=== PATIENT | male | born 1960 | race Caucasian/White ===

== ENCOUNTER 2017-02-26 05:55 | Observation (INO) | payer BC ==
[~2017-02-26] VITALS: Ht 171.4 cm; Wt 87.5 kg
[~2017-02-26 05:55] MED LIST: ASPIRIN81 M1 PO; Ativan PO; Ecotrin PO; LIPITOR5 MG PO; LOPRESSOR25 MG PO; Lipitor PO; METOPROLOL TART25 MG PO; PriLOSEC PO; SKELAXIN400 MG PO; ULTRAM50 MG PO; ZITHROMAX500 MG PO
[2017-02-26 06:46] LABS: BASOPHIL COUNT 0.1 K/uL (0-0.1); EOSINOPHIL (%) 2.5 % (0-5); EOSINOPHIL COUNT 0.2 K/uL (0-0.3); HEMATOCRIT 47.4 % (38.0-50.0); IMMATURE GRANULOCYTE (%) 0.5 % (0.0-0.7); IMMATURE GRANULOCYTE COUNT 0.1 K/uL; INSTRUMENT ABS NEUTROPHIL CT 6.6 K/uL; LYMPHOCYTE COUNT 1.8 K/uL (1.0-2.8); MCH 30.2 PG (29.0-34.0); MCHC 34.8 G/DL (30.0-36.0); MCV 86.7 FL (86-99); MEAN PLAT.VOLUME 9.1 uM^3 (9.0-12.4); MONOCYTE (%) 9.3 % (3-12); MONOCYTE COUNT 0.9 K/uL (0-0.8); NEUTROPHIL (%) 68.1 % (45-76); NEUTROPHIL COUNT 6.6 K/uL (1.8-6.4); PLATELET COUNT 255 K/uL (156-360); RBC DIS.WIDTH-CV 13.2 % (11.8-14.6); RBC DIS.WIDTH-SD 42.1 % (39-53); RED BLOOD COUNT 5.47 M/uL (4.00-5.50); WHITE BLOOD COUNT 9.7 K/uL (4.1-10.2)
[2017-02-26 06:53] LABS: INTER. NORMALIZED RATIO 0.9; PROTHROMBIN TIME 10.2 SEC (10.2-12.9)
[2017-02-26 06:56] LABS: PTT 28.5 SEC (25-37)
[2017-02-26 08:37] LABS: D-DIMER ELISA < 150.00 ng/mLDDU (<230)
[2017-02-26 09:03] LABS: TROP-I INTERPRETATION NEGATIVE; TROPONIN-I 0.03 ng/mL (0.0-0.30)
[2017-02-26 09:04] LABS: ANION GAP 11 MEQ/L (2-14); CHLORIDE 102 MEQ/L (99-109); GFR ESTIMATE (CALCULATED) > 59 mL/min/; GLUCOSE 127 mg/dL (70-99); POTASSIUM 4.1 MEQ/L (3.7-5.4); SAMPLE HEMOLYSIS CHECK 0; SAMPLE ICTERIC CHECK 0; SAMPLE LIPEMIA CHECK 0; SODIUM 138 MEQ/L (136-147); UREA NITROGEN (BUN) 14 mg/dL (9-23)
[2017-02-26] MEDS ORDERED: LITE COAT ASPI325 M1 PO (09:56)
[2017-02-26] MEDS ORDERED: LIPITOR80 MG PO (09:57)
[2017-02-26] MEDS ORDERED: ATIVAN0.5 MG PO (09:57)
[2017-02-26] MEDS ORDERED: PRILOSEC20 MG PO (09:58)
[2017-02-26] MEDS ORDERED: FARXIGA10 MG PO (09:58)
[2017-02-26] MEDS ORDERED: NORVASC10 MG PO (09:58)
[2017-02-26] MEDS ORDERED: TRIAMCINOLONE A15 GM TP (09:59)
[2017-02-26] MEDS ORDERED: MUPIROCIN15 GM TP (09:59)
[2017-02-26 10:21] VITALS: BP 160/94
[2017-02-26 12:34] LABS: POINT-OF-CARE METER ID UU13113700
[2017-02-26 12:53] LABS: ALKALINE PHOSPHATASE 81 IU/L (3-129); DIRECT BILIRUBIN 0.1 mg/dL (0.0-0.3); HDL CHOLESTEROL 84 MG/DL (Desirable>=40); LDL CHOLESTEROL 189 mg/dL (Desirable<100); LIPASE 43 U/L (1.0-51.0); NON-HDL CHOLESTEROL 232 mg/dL (Desirable<160); TOTAL BILIRUBIN 0.5 MG/DL (0.0-1.0); TOTAL CHOLESTEROL 316 mg/dL (Desirable<200); TRIGLYCERIDES 214 MG/DL (Normal: <150)
[2017-02-26 13:27] LABS: TROP-I INTERPRETATION NEGATIVE; TROPONIN-I < 0.01 ng/mL (0.0-0.30)
[2017-02-26 16:28] VITALS: BP 140/82
[2017-02-26 17:00] LABS: POINT-OF-CARE METER ID UU13113700
[2017-02-26 18:02] LABS: TROP-I INTERPRETATION NEGATIVE; TROPONIN-I 0.01 ng/mL (0.0-0.30)
[2017-02-26 20:00] VITALS: BP 136/86
[2017-02-26 21:22] LABS: POINT-OF-CARE METER ID UU13113831
[2017-02-27] VITALS: BP 117/75
[2017-02-27 04:00] VITALS: BP 121/60
[2017-02-27 08:00] VITALS: BP 143/90
[2017-02-27 09:22] LABS: POINT-OF-CARE METER ID UU13113700
[2017-02-27 12:48] LABS: POINT-OF-CARE METER ID UU13113700
[2017-02-27 13:11] VITALS: BP 149/93
== END 2017-02-27 16:25 | disposition home or self-care (01) ==
LOC: EME 05:55 → EDOF 07:52 → 5WEST 07:52 → EDOF 07:52 → ENRESERV 08:03 → 5WEST 09:59
PROVIDERS: Emergency Medicine; Internal Medicine
DX: R07.9 Chest pain, unspecified (principal); J21.9 Acute bronchiolitis, unspecified; J45.909 Unspecified asthma, uncomplicated; E11.9 Type 2 diabetes mellitus without complications; I10 Essential (primary) hypertension; I25.10 Atherosclerotic heart disease of native coronary artery without angina pectoris; Z95.5 Presence of coronary angioplasty implant and graft; I51.7 Cardiomegaly; E78.5 Hyperlipidemia, unspecified; Z87.891 Personal history of nicotine dependence; K21.9 Gastro-esophageal reflux disease without esophagitis; I70.0 Atherosclerosis of aorta; Z79.82 Long term (current) use of aspirin; Z88.1 Allergy status to other antibiotic agents
CPT/HCPCS: 71010; 71275; 80048; 80061; 80076; 82948; 83690; 84484; 85025; 85379; 85610; 85730; 93005; 99281; 99284; G0378; J1650; J2270

== ENCOUNTER 2017-03-14 08:43 | Day surgery (SDC) | payer BC ==
[~2017-03-14] VITALS: Ht 171.4 cm; Wt 83.0 kg
[~2017-03-14 08:43] MED LIST changes: +ATIVAN0.5 MG PO; +FARXIGA10 MG PO; +LIPITOR80 MG PO; +LISINOPRIL20 MG PO; +LITE COAT ASPI325 M1 PO; +MUPIROCIN15 GM TP; +NORVASC10 MG PO; +PRILOSEC20 MG PO; +TRIAMCINOLONE A15 GM TP
[2017-03-14 09:42] LABS: POINT-OF-CARE METER ID UU13113696
[2017-03-14 11:49] LABS: POINT-OF-CARE METER ID UU13113819; POINT-OF-CARE USER ID 515036437
== END 2017-03-14 16:10 | disposition home or self-care (01) ==
LOC: CATH 08:43
PROVIDERS: Internal Medicine Cardiovascular Disease
DX: I25.10 Atherosclerotic heart disease of native coronary artery without angina pectoris (principal); E11.9 Type 2 diabetes mellitus without complications; F41.8 Other specified anxiety disorders; E78.5 Hyperlipidemia, unspecified; I10 Essential (primary) hypertension; J45.909 Unspecified asthma, uncomplicated; K86.1 Other chronic pancreatitis; K21.9 Gastro-esophageal reflux disease without esophagitis; Z95.5 Presence of coronary angioplasty implant and graft; Z79.82 Long term (current) use of aspirin
CPT/HCPCS: 82948; C1750; C1760; C1769; C1887; C1894; J1200; J1644; J2250; J3010

== ENCOUNTER 2017-06-05 03:41 | Inpatient (IN) | payer BC ==
[~2017-06-05] VITALS: Ht 175.3 cm; Wt 83.3 kg
[2017-06-05 04:25] LABS: HEMATOCRIT 47.8 % (38.0-50.0); HEMOGLOBIN 17.3 G/DL (12.5-16.6); MCHC 36.2 G/DL (30.0-36.0); MCV 91.2 FL (86-99); PLATELET COUNT 249 K/uL (156-360); RBC DIS.WIDTH-CV 12.4 % (11.8-14.6); RBC DIS.WIDTH-SD 41.9 % (39-53); RED BLOOD COUNT 5.24 M/uL (4.00-5.50); WHITE BLOOD COUNT 8.1 K/uL (4.1-10.2)
[2017-06-05 04:34] LABS: ALBUMIN 3.7 g/dL (3.2-4.8); CHLORIDE 94 mEq/L (99-109); POTASSIUM 4.1 mEq/L (3.7-5.4); SODIUM 131 mEq/L (136-147)
[2017-06-05 04:36] LABS: GLUCOSE 176 mg/dL (70-99); TOTAL PROTEIN 6.3 g/dL (6.4-8.3)
[2017-06-05 04:38] LABS: TOTAL BILIRUBIN 0.7 mg/dL (0.0-1.0)
[2017-06-05 04:40] LABS: ALKALINE PHOSPHATASE 96 IU/L (3-129); GFR ESTIMATE (CALCULATED) > 59 mL/min/ (58.99-99999)
[2017-06-05 04:41] LABS: UREA NITROGEN (BUN) 20 mg/dL (9-23)
[2017-06-05 04:42] LABS: AST (GOT) 26 IU/L (2-34)
[2017-06-05 04:43] LABS: ALT (GPT) 35 IU/L (3-49); LIPASE 37 U/L (1.0-51.0)
[2017-06-05 06:29] LABS: APPEARANCE CLEAR ((CLEAR)); BILIRUBIN NEGATIVE; BLOOD NEGATIVE; COLOR YELLOW ((YELLOW)); GLUCOSE (STRIP) >=500; KETONES NEGATIVE; LEUKOCYTES NEGATIVE; NITRITE NEGATIVE; PROTEIN (STRIP) NEGATIVE; UCUL ADDED? NO; UROBILINOGEN 0.2 MG/DL (0.2-1.0)
[2017-06-05 07:39] LABS: SPECIFIC GRAVITY 1.092 (1.000-1.030)
[2017-06-05] MEDS ORDERED: SERTRALINE HCL25 MG PO (09:57)
[2017-06-05] MEDS ORDERED: WELCHOL625 MG PO (09:58)
[2017-06-05] MEDS ORDERED: ONDANSETRON HCL4 MG PO (09:58)
[2017-06-05 15:05] VITALS: BP 148/78
[2017-06-05 23:55] VITALS: BP 135/73
[2017-06-06 04:35] VITALS: BP 136/72
[2017-06-06 07:16] LABS: CHLORIDE 100 MEQ/L (99-109); CREATININE 0.9 MG/DL (0.6-1.3); GFR ESTIMATE (CALCULATED) > 59 mL/min/ (58.99-99999); POTASSIUM 4.3 MEQ/L (3.7-5.4); SODIUM 136 MEQ/L (136-147); UREA NITROGEN (BUN) 12 mg/dL (9-23)
[2017-06-06 07:20] LABS: GLUCOSE 85 mg/dL (70-99); HEMATOCRIT 41.7 % (38.0-50.0); MCH 32.7 PG (29.0-34.0); MCHC 34.8 G/DL (30.0-36.0); MCV 94.1 FL (86-99); PLATELET COUNT 189 K/uL (156-360); RBC DIS.WIDTH-CV 12.3 % (11.8-14.6); RED BLOOD COUNT 4.43 M/uL (4.00-5.50); WHITE BLOOD COUNT 6.5 K/uL (4.1-10.2)
[2017-06-06 07:21] LABS: HEMOGLOBIN 14.5 G/DL (12.5-16.6)
[2017-06-06 07:26] VITALS: BP 154/87
[2017-06-06 10:57] VITALS: BP 129/88
[2017-06-06 16:14] VITALS: BP 133/80
[2017-06-06 20:35] VITALS: BP 132/78
[2017-06-06 20:38] VITALS: BP 138/85
[2017-06-07 00:11] VITALS: BP 133/63
[2017-06-07 07:48] VITALS: BP 131/83
[2017-06-07 16:16] VITALS: BP 159/89
[2017-06-08] VITALS: BP 127/81
[2017-06-08 06:16] LABS: HEMATOCRIT 39.6 % (38.0-50.0); HEMOGLOBIN 14.2 G/DL (12.5-16.6); MCH 33.7 PG (29.0-34.0); MCHC 35.9 G/DL (30.0-36.0); MCV 94.1 FL (86-99); PLATELET COUNT 152 K/uL (156-360); RBC DIS.WIDTH-CV 11.9 % (11.8-14.6); RBC DIS.WIDTH-SD 41.3 % (39-53); RED BLOOD COUNT 4.21 M/uL (4.00-5.50); WHITE BLOOD COUNT 5.8 K/uL (4.1-10.2)
[2017-06-08 07:01] LABS: CHLORIDE 103 MEQ/L (99-109); GFR ESTIMATE (CALCULATED) > 59 mL/min/ (58.99-99999); GLUCOSE 101 mg/dL (70-99); POTASSIUM 4.5 MEQ/L (3.7-5.4); SODIUM 138 MEQ/L (136-147); UREA NITROGEN (BUN) 8 mg/dL (9-23)
[2017-06-08 07:41] VITALS: BP 167/83
[2017-06-08 16:44] VITALS: BP 150/87
[2017-06-08 23:15] VITALS: BP 141/70
[2017-06-09 07:36] VITALS: BP 168/83
[2017-06-09 09:22] LABS: HEMATOCRIT 44.2 % (38.0-50.0); HEMOGLOBIN 14.9 G/DL (12.5-16.6); MCH 31.4 PG (29.0-34.0); MCHC 33.7 G/DL (30.0-36.0); MCV 93.2 FL (86-99); PLATELET COUNT 179 K/uL (156-360); RBC DIS.WIDTH-CV 11.9 % (11.8-14.6); RBC DIS.WIDTH-SD 41.1 % (39-53); RED BLOOD COUNT 4.74 M/uL (4.00-5.50); WHITE BLOOD COUNT 6.3 K/uL (4.1-10.2)
[2017-06-09 09:47] LABS: ALBUMIN 3.2 G/DL (3.2-4.8); ALKALINE PHOSPHATASE 70 IU/L (3-129); ALT (GPT) 17 IU/L (3-49); AST (GOT) 16 IU/L (2-34); CHLORIDE 104 MEQ/L (99-109); CREATININE 0.9 MG/DL (0.6-1.3); GFR ESTIMATE (CALCULATED) > 59 mL/min/ (58.99-99999); LIPASE 27 U/L (1.0-51.0); POTASSIUM 4.4 MEQ/L (3.7-5.4); SODIUM 137 MEQ/L (136-147); TOTAL BILIRUBIN 0.4 MG/DL (0.0-1.0); UREA NITROGEN (BUN) 6 mg/dL (9-23)
[2017-06-09 09:48] LABS: GLUCOSE 215 mg/dL (70-99)
[2017-06-09] MEDS ORDERED: GABAPENTIN300 MG PO (11:40)
[2017-06-09] MEDS ORDERED: CREON 241 CAPSULE PO (11:40)
[2017-06-09] MEDS ORDERED: ENDOCET 5-3251 EACH PO (11:40)
== END 2017-06-09 13:00 | disposition home or self-care (01) | DRG 439 ==
LOC: EME 03:41 → 5EAST 09:11 → EDOF 09:11 → ENRESERV 09:16 → 5EAST 13:05 → ENPENDDIS 06-09 → 5EAST 06-09 13:00
PROVIDERS: Internal Medicine; Internal Medicine Gastroenterology
DX: K85.90 Acute pancreatitis without necrosis or infection, unspecified (principal); K76.0 Fatty (change of) liver, not elsewhere classified; I25.10 Atherosclerotic heart disease of native coronary artery without angina pectoris; E11.40 Type 2 diabetes mellitus with diabetic neuropathy, unspecified; I10 Essential (primary) hypertension; J45.909 Unspecified asthma, uncomplicated; K57.90 Diverticulosis of intestine, part unspecified, without perforation or abscess without bleeding; E87.1 Hypo-osmolality and hyponatremia; Q45.3 Other congenital malformations of pancreas and pancreatic duct; Z95.5 Presence of coronary angioplasty implant and graft; Z79.4 Long term (current) use of insulin; Z87.891 Personal history of nicotine dependence; Z90.49 Acquired absence of other specified parts of digestive tract
CPT/HCPCS: 71045; 74177; 80048; 80053; 81003; 82948; 83690; 85027; 94640; 99281; 99285; J1170; J1650; J1815; J2270; J2405; J2765; J3010; J7030; S0028

== ENCOUNTER 2017-12-07 18:48 | Emergency (ER) | payer BC ==
[~2017-12-07] VITALS: Ht 175.3 cm; Wt 93.0 kg
[~2017-12-07 18:48] MED LIST changes: +CREON 241 CAPSULE PO; +ENDOCET 5-3251 EACH PO; +GABAPENTIN300 MG PO; +ONDANSETRON HCL4 MG PO; +SERTRALINE HCL25 MG PO; +WELCHOL625 MG PO
[2017-12-07 19:40] LABS: HEMATOCRIT 42.4 % (38.0-50.0); HEMOGLOBIN 15.4 G/DL (12.5-16.6); MCH 30.7 PG (29.0-34.0); MCHC 36.3 G/DL (30.0-36.0); MCV 84.6 FL (86-99); RBC DIS.WIDTH-CV 12.4 % (11.8-14.6); RBC DIS.WIDTH-SD 37.2 % (39-53); RED BLOOD COUNT 5.01 M/uL (4.00-5.50); WHITE BLOOD COUNT 9.6 K/uL (4.1-10.2)
[2017-12-07 20:01] LABS: CARBON DIOXIDE (BICARBONATE) 23.5 MEQ/L (20-31)
[2017-12-07 20:04] LABS: PLATELET COUNT 221 K/uL (156-360)
[2017-12-07 20:22] LABS: TROP-I INTERPRETATION NEGATIVE; TROPONIN-I < 0.01 ng/mL (0.0-0.30)
[2017-12-07 20:43] LABS: ALBUMIN 3.6 g/dL (3.2-4.8); CHLORIDE 101 mEq/L (99-109); POTASSIUM 4.9 mEq/L (3.7-5.4); SODIUM 133 mEq/L (136-147)
[2017-12-07 20:44] LABS: MAGNESIUM 2.2 mg/dL (1.3-2.7)
[2017-12-07 20:46] LABS: TOTAL PROTEIN 6.4 g/dL (6.4-8.3)
[2017-12-07 20:48] LABS: TOTAL BILIRUBIN 0.2 mg/dL (0.0-1.0)
[2017-12-07 20:49] LABS: ALKALINE PHOSPHATASE 110 IU/L (3-129); PHOSPHORUS 2.4 mg/dL (2.5-4.9)
[2017-12-07 20:50] LABS: CREATININE 1.3 mg/dL (0.6-1.3); GFR ESTIMATE (CALCULATED) > 59 mL/min/ (58.99-99999)
[2017-12-07 20:51] LABS: AST (GOT) 16 IU/L (2-34); UREA NITROGEN (BUN) 25 mg/dL (9-23)
[2017-12-07 20:52] LABS: ALT (GPT) 36 IU/L (3-49)
[2017-12-07 20:53] LABS: LIPASE 80 U/L (1.0-51.0)
[2017-12-07 20:57] LABS: GLUCOSE 617 mg/dL (70-99)
[2017-12-07] MEDS ORDERED: FARXIGA10 MG PO (22:10)
[2017-12-07] MEDS ORDERED: TEST STRIPS MC (22:26)
[2017-12-07] MEDS ORDERED: GLUCOMETER MC (22:26)
[2017-12-07 22:41] VITALS: BP 133/77
== END 2017-12-07 22:43 | disposition home or self-care (01) ==
LOC: EME 18:48
PROVIDERS: Emergency Medicine
DX: E11.65 Type 2 diabetes mellitus with hyperglycemia (principal); R74.8 Abnormal levels of other serum enzymes; E87.0 Hyperosmolality and hypernatremia; I10 Essential (primary) hypertension; I50.9 Heart failure, unspecified; K21.9 Gastro-esophageal reflux disease without esophagitis; J45.909 Unspecified asthma, uncomplicated; R56.9 Unspecified convulsions; F32.9 Major depressive disorder, single episode, unspecified; F41.9 Anxiety disorder, unspecified; Z79.82 Long term (current) use of aspirin; Z87.891 Personal history of nicotine dependence; Z87.442 Personal history of urinary calculi; Z90.49 Acquired absence of other specified parts of digestive tract; Z95.9 Presence of cardiac and vascular implant and graft, unspecified; Z88.1 Allergy status to other antibiotic agents; Z88.8 Allergy status to other drugs, medicaments and biological substances
CPT/HCPCS: 80053; 82803; 82948; 83605; 83690; 83735; 83930; 84100; 84484; 85027; 87040; 93005; 99281; 99285; J7030